=== PATIENT | female | born 1970 | race Caucasian/White ===

== ENCOUNTER → 2016-12-30 19:08 | Outpatient (CLI) | payer BC ==
[~2016-12-30 19:08] MED LIST: CYMBALTA20 MG PO; HYDROCODON-ACET15 ML PO; HYDROCODONE-APA1 TAB PO; LIDO TOPICAL; LIORESAL 10 MG10 MG PO; LYRICA150 MG PO; MELOX TOPICAL; NIFEDIPINE ER30 MG PO; PEPCID40 MG PO; PREDNISONE5 MG PO; PRILO TOPICAL; PROCARDIA10 MG PO; SYNTHROID100 MCG PO; VOLTAREN75 MG PO; XANAX0.5 MG PO; ZANTAC150 MG PO; ZOFRAN ODT4 MG/UDTAB PO
== END | disposition home or self-care (01) ==
LOC: D.MAMMO 15:45
DX: Z12.31 Encounter for screening mammogram for malignant neoplasm of breast (principal)